=== PATIENT | female | born 1975 ===

== ENCOUNTER 2025-04-22 07:00 | Day surgery (SDC) | payer OTHER ==
[2025-04-15 10:10] VITALS: BP 135/81
[~2025-04-22 07:00] MED LIST: CEFTRIAXONE SODIUM 2,000 MG VIAL ONE; METRONIDAZOLE/SODIUM CHLORIDE 500 MG/100 ML PIGGYBACK IV ONE; TAMOXIFEN CITRA20 MG
[2025-04-22] MEDS ORDERED: DIBUCAINE 30 GM TUBE ONE ×2 (07:05→07:20)
[2025-04-22] MEDS ORDERED: POVIDONE-IODINE 118 ML BOTT TOP ONE ×2 (07:05→07:20)
[2025-04-22] MEDS ORDERED: BUPIVACAINE HCL/MPF 0.5% 30ML VIAL ONE ×2 (07:05→07:20)
[2025-04-22] MEDS ORDERED: HEMOSTATIC MATRIX 1 KIT KIT TOP ONE ×2 (07:06→07:19)
[2025-04-22] MEDS ORDERED: LIDOCAINE HCL 1%/EPINEPHRINE 20ML VIAL IJ ONE (07:20)
[2025-04-22] MEDS ORDERED: CEFTRIAXONE SODIUM 2,000 MG VIAL ONE (07:24)
[2025-04-22] MEDS ORDERED: METRONIDAZOLE/SODIUM CHLORIDE 500 MG/100 ML PIGGYBACK IV ONE (07:24)
[2025-04-22] MEDS ORDERED: PERCOCET 5-3251 EACH PO (08:29)
[2025-04-22] MEDS ORDERED: RECTICARE30 GM TOP (08:30)
== END 2025-04-22 10:30 | disposition home or self-care (01) ==
LOC: CIR.AMB 07:00
PROVIDERS: ATTEND Surgery
DX: K64.2 Third degree hemorrhoids (principal); K64.4 Residual hemorrhoidal skin tags; D50.9 Iron deficiency anemia, unspecified